=== PATIENT | male | born 1965 | race Hispanic/Latino ===

== ENCOUNTER 2018-02-10 11:32 | Emergency (ER) | payer OTHER ==
[2018-02-10] MEDS ORDERED: TETANUS/DIPHTHERIA TOXOID [ADULT] 0.5 ML VIAL IM ONE (13:14)
[2018-02-10] MEDS ORDERED: IBUPROFEN 800 MG TAB ONE (13:35)
== END 2018-02-10 13:42 | disposition home or self-care (01) ==
LOC: EDH 11:32
DX: S62.665A Nondisplaced fracture of distal phalanx of left ring finger, initial encounter for closed fracture (principal); I10 Essential (primary) hypertension; E11.9 Type 2 diabetes mellitus without complications; W23.0XXA Caught, crushed, jammed, or pinched between moving objects, initial encounter; Y93.89 Activity, other specified; Y92.69 Other specified industrial and construction area as the place of occurrence of the external cause; Y99.8 Other external cause status
CPT/HCPCS: 73140; 90471; 90714

== ENCOUNTER → 2019-04-20 | Outpatient (CLI) | payer OTHER | END | disposition home or self-care (01) | LOC: RAH 13:34 | PROVIDERS: ATTEND Family Medicine | DX: S06.0X0A Concussion without loss of consciousness, initial encounter (principal); X58.XXXA Exposure to other specified factors, initial encounter; Y93.89 Activity, other specified; Y92.89 Other specified places as the place of occurrence of the external cause; Y99.8 Other external cause status | CPT/HCPCS: 70450 ==

== ENCOUNTER → 2020-10-31 | Outpatient (CLI) | payer OTHER | END | disposition home or self-care (01) | LOC: OIH 12:44 | PROVIDERS: ATTEND Internal Medicine Cardiovascular Disease | DX: Z13.6 Encounter for screening for cardiovascular disorders (principal) | CPT/HCPCS: 75571 ==

== ENCOUNTER 2021-10-30 11:53 | Inpatient (IN) | payer BC, OTHER ==
[~2021-10-30] VITALS: Ht 167.6 cm; Wt 127.6 kg
[2021-10-30] MEDS ORDERED: LACTATED RINGERS 1000ML 1,914 ML IV ONE (12:30)
[2021-10-30 12:38] LABS: BASOPHILS % (AUTO) 0.2 % (0.0-5.0); EOSINOPHILS % (AUTO) 0.3 % (0.0-8.0); HEMATOCRIT 34.4 % (42-54); LYMPHOCYTES % (AUTO) 4.9 % (21.0-51.0); MEAN CORPUSCULAR HEMOGLOBIN 29.1 pg (27.0-33.0); MEAN CORPUSCULAR HGB CONC 33.7 g/dL (32.0-36.0); MEAN CORPUSCULAR VOLUME 86.4 fL (79-99); MONOCYTES % (AUTO) 6.2 % (3.0-13.0); PLATELET COUNT (AUTO) 237 K/uL (130-400); RED BLOOD CELL COUNT(AUTO) 3.98 MIL/uL (4.50-6.20); RED CELL DISTRIBUTION WIDTH 12.3 % (11.0-15.5); WHITE BLOOD COUNT (AUTO) 12.8 K/uL (4.8-10.8)
[2021-10-30 12:42] LABS: BASE EXCESS,VENOUS BLOOD GAS -3.5 (-2.0-3.0); HCO3,VENOUS BLOOD GAS 21.8 (21.0-28.0); PCO2,VENOUS BLOOD GAS 40 (35-48)
[2021-10-30 12:51] LABS: INR 1.05 (0.85-1.15); PROTHROMBIN TIME 11.4 SEC (9.6-11.6)
[2021-10-30] MEDS ORDERED: ZOSYN 3.375GM+NS 50ML 50 ML ONE (12:52)
[2021-10-30 12:53] LABS: PARTIAL THROMBOPLASTIN TIME 26.9 SEC (26.3-35.5)
[2021-10-30] MEDS ORDERED: 0.9%NACL 50ML 50 ML IV ONE ×2 (12:53→16:58)
[2021-10-30 12:59] LABS: ALBUMIN 2.5 g/dL (3.5-5.0); CREATININE 3.4 mg/dL (0.5-1.5); POTASSIUM 4.4 mmol/L (3.5-5.1)
[2021-10-30] MEDS ORDERED: VANCOMYCIN PROTOCOL PER PHARMACY IV ONE (13:00)
[2021-10-30 13:02] LABS: BILIRUBIN,TOTAL 0.7 mg/dL (0.2-1.0); TOTAL PROTEIN, SERUM 7.1 g/dL (6.0-8.3)
[2021-10-30 13:13] LABS: B-TYPE NATRIURETIC PEPTIDE < 5 pg/mL (0-100)
[2021-10-30] MEDS ORDERED: COMPOUND IV REFRIGERATED 1 EACH IVSOLN MISC PRN (14:00)
[2021-10-30] MEDS ORDERED: VANCOMYCIN 2GM/500ML NS IV ONE ×2 (14:00)
[2021-10-30] MEDS ORDERED: ONDANSETRON 4MG INJ IVP PRN (14:30)
[2021-10-30] MEDS ORDERED: MORPHINE 2 MG SYG IV PRN (14:30)
[2021-10-30] MEDS ORDERED: VANCOMYCIN PROTOCOL PER PHARMACY IV PRN (14:30)
[2021-10-30] MEDS ORDERED: INSULIN HUMULIN R 100 UNIT/ML 3ML IV ONE (14:30)
[2021-10-30] MEDS ORDERED: ACETAMINOPHEN WITH CODEINE 1 TAB TAB PO PRN (14:30)
[2021-10-30] MEDS ORDERED: ACETAMINOPHEN 325 MG TAB PO PRN (14:30)
[2021-10-30] MEDS ORDERED: HYDR25TA PO (14:47)
[2021-10-30] MEDS ORDERED: AMOX1TAB16 PO (14:48)
[2021-10-30] MEDS ORDERED: FAMO-136 PO (14:49)
[2021-10-30] MEDS ORDERED: GLIM4TAB36 PO (14:50)
[2021-10-30] MEDS ORDERED: AEC81 PO (14:50)
[2021-10-30] MEDS ORDERED: METF-446 PO (14:51)
[2021-10-30] MEDS ORDERED: SULF1TAB42 PO (14:53)
[2021-10-30] MEDS ORDERED: CARV6.25 PO (14:55)
[2021-10-30] MEDS ORDERED: LISI20TA24 PO (14:56)
[2021-10-30] MEDS ORDERED: [UNRECOGNIZED DRUG - OTHER] IV SCH (15:30)
[2021-10-30] MEDS ORDERED: NOREPINEPHRINE IV SCH (15:30)
[2021-10-30] MEDS: 0.9%NACL 1000ML 1,000 ML IV SCH (16:23)
[2021-10-30] MEDS ORDERED: CEFEPIME HCL 2 GM VIAL IVP SCH (17:00)
[2021-10-30 23:15] LABS: APPEARANCE,URINE Cloudy (CLEAR); BILIRUBIN,URINE Negative (NEGATIVE); COLOR,URINE Yellow (YELLOW); GLUCOSE, URINE (UA) 500 mg/dL (NEGATIVE); KETONES,URINE Negative (NEGATIVE); LEUKOCYTE ESTERASE ,URINE Negative (NEGATIVE); NITRATE,URINE Negative (NEGATIVE); OCCULT BLOOD,URINE Negative (NEGATIVE); PROTEIN,URINE POS 1+ mg/dL (NEGATIVE); UROBILINOGEN,URINE 0.2 mg/dL (0.2-1.0)
[2021-10-30 23:29] LABS: RBC,URINE 0-1 /HPF (0-1)
[2021-10-30 23:30] LABS: BACTERIA,URINE Moderate /HPF (None Seen); SQUAMOUS EPITHELIAL CELL,UR Rare /HPF (0-2); WBC,URINE 0-1 /HPF (0-1)
[2021-10-30 23:31] LABS: FINE GRANULAR CASTS,URINE 0-2 /LPF (None Seen)
[2021-10-31] VITALS (21 sets, daily range): BP systolic 110–127; BP diastolic 57–75
[2021-10-31] MEDS: 0.9%NACL 1000ML 1,000 ML IV SCH ×4 (00:30→17:53)
[2021-10-31] MEDS ORDERED: ZOSYN 3.375GM+NS 50ML 50 ML IV SCH (01:00)
[2021-10-31 01:20] LABS: CHLORIDE,URINE RANDOM 85 mmol/L (110-250); POTASSIUM,URINE RANDOM 43 mmol/L (25-125); SODIUM,URINE RANDOM 71 mmol/l (40-220)
[2021-10-31 05:52] LABS: BASOPHILS % (AUTO) 0.3 % (0.0-5.0); EOSINOPHILS % (AUTO) 1.4 % (0.0-8.0); HEMATOCRIT 30.6 % (42-54); LYMPHOCYTES % (AUTO) 5.5 % (21.0-51.0); MEAN CORPUSCULAR HEMOGLOBIN 29.2 pg (27.0-33.0); MEAN CORPUSCULAR HGB CONC 33.7 g/dL (32.0-36.0); MEAN CORPUSCULAR VOLUME 86.7 fL (79-99); MONOCYTES % (AUTO) 8.1 % (3.0-13.0); NEUTROPHILS % (AUTO) 84.4 % (40.0-77.0); PLATELET COUNT (AUTO) 174 K/uL (130-400); RED BLOOD CELL COUNT(AUTO) 3.53 MIL/uL (4.50-6.20); RED CELL DISTRIBUTION WIDTH 12.4 % (11.0-15.5); WHITE BLOOD COUNT (AUTO) 11.8 K/uL (4.8-10.8)
[2021-10-31 06:10] LABS: ALBUMIN 2.2 g/dL (3.5-5.0); BILIRUBIN,TOTAL 0.5 mg/dL (0.2-1.0); CREATININE 2.6 mg/dL (0.5-1.5); MAGNESIUM 2.1 mg/dL (1.80-2.40); PHOSPHORUS 3.4 mg/dL (2.5-4.9); POTASSIUM 4.8 mmol/L (3.5-5.1); TOTAL PROTEIN, SERUM 6.2 g/dL (6.0-8.3)
[2021-10-31] MEDS ORDERED: 0.9% NACL 500ML IV.SOLN 500 ML IV ONE (08:02)
[2021-10-31] MEDS ORDERED: 0.9% NACL 500ML IV.SOLN 500 ML IV SCH (08:30)
[2021-10-31] MEDS ORDERED: ENOXAPARIN SODIUM 30 MG/0.3 ML SQ SCH (09:00)
[2021-10-31] MEDS ORDERED: ZOSYN 3.375GM +NS 50ML IV ONE (09:00)
[2021-10-31] MEDS ORDERED: HEPARIN 5,000 UNIT VIAL SQ SCH (10:00)
[2021-10-31] MEDS: LINEZOLID 600 MG/ISO-OSM 300 ML IV SCH ×2 (11:00→20:01)
[2021-10-31] MEDS ORDERED: LIDOCAINE PF 100MG/5ML (2%) SYRINGE 5ML ONE (13:33)
[2021-10-31] MEDS ORDERED: ONDANSETRON 4MG INJ ONE (13:34)
[2021-10-31] MEDS ORDERED: PROPOFOL 10 MG/ML 20ML VIAL IV ONE (13:34)
[2021-10-31] MEDS ORDERED: ROCURONIUM 10MG/1ML SYR 10 MG/ML ML ONE (13:34)
[2021-10-31] MEDS ORDERED: FENTANYL CITRATE PF 50 MCG/1 ML 2ML VIAL ONE (13:35)
[2021-10-31] MEDS ORDERED: MIDAZOLAM HCL 1 MG/ML 2ML VIAL ONE (13:36)
[2021-10-31] MEDS ORDERED: LIDOCAINE HCL 1% 20 ML VIAL ONE (13:44)
[2021-10-31] MEDS ORDERED: CEFAZOLIN SODIUM 1 GM VIAL ONE (13:44)
[2021-10-31] MEDS ORDERED: BUPIVACAINE/EPI/PF 0.5% 30ML VIAL IJ ONE (13:45)
[2021-10-31] MEDS ORDERED: EPHEDRINE SULFATE 50 MG/ML AMPULE ONE (13:47)
[2021-10-31] MEDS ORDERED: PHENYLEPHRINE HCL 10 MG/ML 1ML VIAL IV ONE (13:54)
[2021-10-31] MEDS ORDERED: VANCOMYCIN 500MG+NS 100ML IVPB IV SCH (14:00)
[2021-10-31] MEDS ORDERED: 0.9%NACL 100ML 100 ML IV SCH (14:00)
[2021-10-31] MEDS: MIDODRINE HCL 5 MG TABLET PO SCH ×2 (14:00→20:01)
[2021-10-31] MEDS ORDERED: HYDROMORPHONE 1 MG INJ IVP PRN (15:30)
[2021-10-31] MEDS ORDERED: OXYCODONE/ACETAMIN 5/325MG TAB PO PRN (15:30)
[2021-10-31] MEDS ORDERED: DEXTROSE 50%-WATER 50 ML DISP.SYRIN IV PRN (19:00)
[2021-10-31] MEDS ORDERED: GLUCAGON 1MG KIT 1 MG ML IM PRN (19:00)
[2021-10-31] MEDS: CEFEPIME HCL 2 GM VIAL IVP SCH (20:01)
[2021-10-31] MEDS: INSULIN HUMULIN R 100 UNIT/ML 3ML SQ SCH (20:08)
[2021-10-31] MEDS: HEPARIN 5,000 UNIT VIAL SQ SCH (21:12)
[2021-11-01] VITALS (7 sets, daily range): BP systolic 99–130; BP diastolic 55–74
[2021-11-01] MEDS: 0.9%NACL 1000ML 1,000 ML IV SCH (05:10)
[2021-11-01] MEDS: HEPARIN 5,000 UNIT VIAL SQ SCH ×3 (05:11→21:30)
[2021-11-01 05:30] LABS: BASOPHILS % (AUTO) 0.3 % (0.0-5.0); EOSINOPHILS % (AUTO) 2.4 % (0.0-8.0); HEMATOCRIT 30.2 % (42-54); LYMPHOCYTES % (AUTO) 11.9 % (21.0-51.0); MEAN CORPUSCULAR HGB CONC 32.1 g/dL (32.0-36.0); MEAN CORPUSCULAR VOLUME 90.1 fL (79-99); MONOCYTES % (AUTO) 7.2 % (3.0-13.0); NEUTROPHILS % (AUTO) 77.8 % (40.0-77.0); PLATELET COUNT (AUTO) 185 K/uL (130-400); RED BLOOD CELL COUNT(AUTO) 3.35 MIL/uL (4.50-6.20); RED CELL DISTRIBUTION WIDTH 12.5 % (11.0-15.5); WHITE BLOOD COUNT (AUTO) 7.8 K/uL (4.8-10.8)
[2021-11-01 05:43] LABS: CREATININE 1.6 mg/dL (0.5-1.5); POTASSIUM 4.2 mmol/L (3.5-5.1)
[2021-11-01] MEDS: INSULIN HUMULIN R 100 UNIT/ML 3ML SQ SCH ×3 (05:44→21:32)
[2021-11-01] MEDS: LINEZOLID 600 MG/ISO-OSM 300 ML IV SCH ×2 (08:23→21:29)
[2021-11-01] MEDS: MIDODRINE HCL 5 MG TABLET PO SCH ×3 (08:23→21:29)
[2021-11-01] MEDS ORDERED: 0.9%NACL 100ML 100 ML IV SCH (09:00)
[2021-11-01] MEDS ORDERED: VANCOMYCIN 500MG+NS 100ML IVPB IV SCH (09:00)
[2021-11-01] MEDS: CEFEPIME HCL 2 GM VIAL IVP SCH (21:29)
[2021-11-01] MEDS: INSULIN GLARGINE 100 UNITS/ML 10 ML VIAL SQ SCH (21:31)
[2021-11-02] MEDS: 0.9%NACL 1000ML 1,000 ML IV SCH ×3 (01:42→21:17)
[2021-11-02 04:00] VITALS: BP 111/65
[2021-11-02 05:11] LABS: BASOPHILS % (AUTO) 0.2 % (0.0-5.0); EOSINOPHILS % (AUTO) 5.1 % (0.0-8.0); LYMPHOCYTES % (AUTO) 19.5 % (21.0-51.0); MEAN CORPUSCULAR HEMOGLOBIN 28.8 pg (27.0-33.0); MEAN CORPUSCULAR VOLUME 90.1 fL (79-99); MONOCYTES % (AUTO) 9.5 % (3.0-13.0); NEUTROPHILS % (AUTO) 65.3 % (40.0-77.0); PLATELET COUNT (AUTO) 216 K/uL (130-400); RED BLOOD CELL COUNT(AUTO) 3.33 MIL/uL (4.50-6.20); RED CELL DISTRIBUTION WIDTH 12.4 % (11.0-15.5); WHITE BLOOD COUNT (AUTO) 5.3 K/uL (4.8-10.8)
[2021-11-02 05:23] LABS: BILIRUBIN,TOTAL 0.3 mg/dL (0.2-1.0); CREATININE 1.6 mg/dL (0.5-1.5); MAGNESIUM 1.9 mg/dL (1.80-2.40); PHOSPHORUS 3.3 mg/dL (2.5-4.9); TOTAL PROTEIN, SERUM 6.3 g/dL (6.0-8.3)
[2021-11-02 05:43] LABS: CRP QUANTITATIVE 254.3 mg/L (0.00-9.0)
[2021-11-02] MEDS: INSULIN HUMULIN R 100 UNIT/ML 3ML SQ SCH ×7 (06:18→21:01)
[2021-11-02 06:23] LABS: ERYTHROCYTE SEDIMENTATION RATE 125 MM/HR (0-20)
[2021-11-02] MEDS: HEPARIN 5,000 UNIT VIAL SQ SCH ×3 (06:28→21:00)
[2021-11-02 07:50] VITALS: BP 116/67
[2021-11-02] MEDS: MIDODRINE HCL 5 MG TABLET PO SCH ×3 (09:16→21:02)
[2021-11-02] MEDS: LINEZOLID 600 MG/ISO-OSM 300 ML IV SCH ×2 (10:10→20:59)
[2021-11-02 11:38] VITALS: BP 122/66
[2021-11-02 15:50] VITALS: BP 125/62
[2021-11-02 20:23] VITALS: BP 119/68
[2021-11-02] MEDS: CEFEPIME HCL 2 GM VIAL IVP SCH (20:59)
[2021-11-02] MEDS: INSULIN GLARGINE 100 UNITS/ML 10 ML VIAL SQ SCH (21:01)
[2021-11-02 23:50] VITALS: BP 128/69
[2021-11-03 04:09] VITALS: BP 119/69
[2021-11-03] MEDS: INSULIN HUMULIN R 100 UNIT/ML 3ML SQ SCH ×7 (05:15→21:40)
[2021-11-03 05:16] LABS: BASOPHILS % (AUTO) 0.4 % (0.0-5.0); EOSINOPHILS % (AUTO) 5.5 % (0.0-8.0); HEMATOCRIT 30.4 % (42-54); LYMPHOCYTES % (AUTO) 24.3 % (21.0-51.0); MEAN CORPUSCULAR HGB CONC 32.6 g/dL (32.0-36.0); MEAN CORPUSCULAR VOLUME 89.1 fL (79-99); MONOCYTES % (AUTO) 9.4 % (3.0-13.0); PLATELET COUNT (AUTO) 258 K/uL (130-400); RED BLOOD CELL COUNT(AUTO) 3.41 MIL/uL (4.50-6.20); RED CELL DISTRIBUTION WIDTH 12.2 % (11.0-15.5); WHITE BLOOD COUNT (AUTO) 4.9 K/uL (4.8-10.8)
[2021-11-03 05:39] LABS: BILIRUBIN,TOTAL 0.2 mg/dL (0.2-1.0); CREATININE 1.4 mg/dL (0.5-1.5); POTASSIUM 3.9 mmol/L (3.5-5.1); TOTAL PROTEIN, SERUM 6.2 g/dL (6.0-8.3)
[2021-11-03] MEDS: HEPARIN 5,000 UNIT VIAL SQ SCH ×2 (06:24→14:06)
[2021-11-03 08:00] VITALS: BP 122/81
[2021-11-03] MEDS: 0.9%NACL 1000ML 1,000 ML IV SCH (08:30)
[2021-11-03] MEDS: MIDODRINE HCL 5 MG TABLET PO SCH ×3 (08:38→21:25)
[2021-11-03] MEDS: LINEZOLID 600 MG/ISO-OSM 300 ML IV SCH ×2 (10:47→21:25)
[2021-11-03 12:00] VITALS: BP 130/71
[2021-11-03 16:00] VITALS: BP 138/67
[2021-11-03] MEDS ORDERED: INSULIN HUMULIN R 100 UNIT/ML 3ML SQ SCH (17:00)
[2021-11-03 19:36] VITALS: BP 122/77
[2021-11-03] MEDS: METFORMIN HCL 500 MG TABLET PO SCH (21:25)
[2021-11-03] MEDS: GLIMEPIRIDE 2 MG TABLET PO SCH (21:25)
[2021-11-03] MEDS: INSULIN GLARGINE 100 UNITS/ML 10 ML VIAL SQ SCH (21:39)
[2021-11-03 23:55] VITALS: BP 148/76
[2021-11-04 04:09] VITALS: BP 121/67
[2021-11-04 04:16] LABS: HEMATOCRIT 30.6 % (42-54); MEAN CORPUSCULAR HEMOGLOBIN 28.6 pg (27.0-33.0); MEAN CORPUSCULAR HGB CONC 32.4 g/dL (32.0-36.0); MEAN CORPUSCULAR VOLUME 88.4 fL (79-99); PLATELET COUNT (AUTO) 308 K/uL (130-400); RED BLOOD CELL COUNT(AUTO) 3.46 MIL/uL (4.50-6.20); RED CELL DISTRIBUTION WIDTH 12.1 % (11.0-15.5); WHITE BLOOD COUNT (AUTO) 5.5 K/uL (4.8-10.8)
[2021-11-04 04:34] LABS: CREATININE 1.5 mg/dL (0.5-1.5); POTASSIUM 3.5 mmol/L (3.5-5.1)
[2021-11-04 05:20] LABS: EOSINOPHILS % (MANUAL) 3 % (1-6); LYMPHOCYTES % (MANUAL) 29 % (22-44); MAN.DIFF COMMENT-IMPRESSION MANUAL DIFFERENTIAL; MONOCYTES % (MANUAL) 3 % (2-9); PLATELET MORPHOLOGY COMMENT ADEQUATE; SEGMENTED NEUTROPHILS % 65 % (40-70)
[2021-11-04] MEDS: INSULIN HUMULIN R 100 UNIT/ML 3ML SQ SCH ×6 (07:30→17:10)
[2021-11-04 08:17] VITALS: BP 133/75
[2021-11-04] MEDS: GLIMEPIRIDE 2 MG TABLET PO SCH (08:43)
[2021-11-04] MEDS: MIDODRINE HCL 5 MG TABLET PO SCH ×3 (08:44→14:40)
[2021-11-04] MEDS: METFORMIN HCL 500 MG TABLET PO SCH (08:44)
[2021-11-04] MEDS ORDERED: ASPIRIN 81 MG EC TAB PO SCH (09:00)
[2021-11-04] MEDS ORDERED: ENOXAPARIN SODIUM 40 MG/0.4 ML SYRINGE SQ SCH (09:00)
[2021-11-04] MEDS: LINEZOLID 600 MG/ISO-OSM 300 ML IV SCH (11:25)
[2021-11-04 11:51] VITALS: BP 138/74
[2021-11-04] MEDS ORDERED: LINE600T14 PO (12:19)
[2021-11-04] MEDS ORDERED: METR-172 PO (12:19)
[2021-11-04] MEDS ORDERED: IBUP-2077 PO (12:19)
[2021-11-04] MEDS ORDERED: NEED1DIS MC (12:28)
[2021-11-04] MEDS ORDERED: INSU3INS3 SQ (12:28)
[2021-11-04] MEDS ORDERED: METRONIDAZOLE 500 MG TABLET PO SCH (14:30)
[2021-11-04 16:00] VITALS: BP 138/78
== END 2021-11-04 18:22 | disposition home health service (06) | DRG 871 ==
LOC: EDH 11:53 → EDHIP 13:30 → 4DH 10-31 16:35
PROVIDERS: ADMIT Hospitalist; ATTEND Hospitalist
PROC: 0J9C0ZZ Drainage of Pelvic Region Subcutaneous Tissue and Fascia, Open Approach (ICD-10-PCS; principal; 2021-10-31 13:43)
DX: A41.9 Sepsis, unspecified organism (principal); N17.0 Acute kidney failure with tubular necrosis; R65.21 Severe sepsis with septic shock; L02.214 Cutaneous abscess of groin; L03.314 Cellulitis of groin; L02.415 Cutaneous abscess of right lower limb; E87.1 Hypo-osmolality and hyponatremia; Z68.42 Body mass index [BMI] 45.0-49.9, adult; N13.30 Unspecified hydronephrosis; N18.9 Chronic kidney disease, unspecified; E66.01 Morbid (severe) obesity due to excess calories; I12.9 Hypertensive chronic kidney disease with stage 1 through stage 4 chronic kidney disease, or unspecified chronic kidney disease; D64.9 Anemia, unspecified; E86.1 Hypovolemia; E11.22 Type 2 diabetes mellitus with diabetic chronic kidney disease; E11.65 Type 2 diabetes mellitus with hyperglycemia; Z20.822 Contact with and (suspected) exposure to COVID-19; Z83.3 Family history of diabetes mellitus; Z82.49 Family history of ischemic heart disease and other diseases of the circulatory system
CPT/HCPCS: 36415; 36600; 71045; 76770; 76882; 80048; 80053; 81001; 82009; 82435; 82436; 82550; 82803; 82947; 82948; 83036; 83605; 83735; 83880; 83935; 84100; 84132; 84133; 84145; 84295; 84300; 84484; 85025; 85610; 85651; 85730; 86140; 87040; 87070; 87076; 87088; 87205; 87635; 87804; 87880; 93005; 93356; 96374; A6266; C8929; G0378; J0690; J0692; J1170; J1644; J1650; J1815; J2001; J2020; J2250; J2370; J2405; J2543; J2704; J3010; J3370; J3490; J7030; J7040

== ENCOUNTER → 2021-11-18 | Outpatient (CLI) | payer BC ==
[~2021-11-18] MED LIST: AEC81 PO; CARV6.25 PO; FAMO-136 PO; GLIM4TAB36 PO; HYDR25TA PO; IBUP-2077 PO; INSU3INS3 SQ; LIDOCAINE HCL 4% LTA SOL 4 ML VIAL TP ONE; LINE600T14 PO; LISI20TA24 PO; METF-446 PO; METR-172 PO; NEED1DIS MC
== END | disposition home or self-care (01) ==
LOC: WHH 08:56
PROVIDERS: ATTEND Family Medicine
DX: T81.89XD Other complications of procedures, not elsewhere classified, subsequent encounter (principal); S71.101D Unspecified open wound, right thigh, subsequent encounter; E11.628 Type 2 diabetes mellitus with other skin complications; E11.22 Type 2 diabetes mellitus with diabetic chronic kidney disease; I12.9 Hypertensive chronic kidney disease with stage 1 through stage 4 chronic kidney disease, or unspecified chronic kidney disease; N18.9 Chronic kidney disease, unspecified; E66.01 Morbid (severe) obesity due to excess calories; E78.5 Hyperlipidemia, unspecified; Z68.42 Body mass index [BMI] 45.0-49.9, adult; Z90.49 Acquired absence of other specified parts of digestive tract; Y83.8 Other surgical procedures as the cause of abnormal reaction of the patient, or of later complication, without mention of misadventure at the time of the procedure; X58.XXXD Exposure to other specified factors, subsequent encounter
CPT/HCPCS: 99214

== ENCOUNTER → 2021-11-25 | Outpatient (CLI) | payer BC ==
[~2021-11-25] MED LIST changes: -LIDOCAINE HCL 4% LTA SOL 4 ML VIAL TP ONE
== END | disposition home or self-care (01) ==
LOC: WHH 09:04
PROVIDERS: ATTEND Family Medicine
DX: T81.89XD Other complications of procedures, not elsewhere classified, subsequent encounter (principal); S71.101D Unspecified open wound, right thigh, subsequent encounter; E11.628 Type 2 diabetes mellitus with other skin complications; E11.22 Type 2 diabetes mellitus with diabetic chronic kidney disease; I12.9 Hypertensive chronic kidney disease with stage 1 through stage 4 chronic kidney disease, or unspecified chronic kidney disease; N18.9 Chronic kidney disease, unspecified; E66.01 Morbid (severe) obesity due to excess calories; E78.5 Hyperlipidemia, unspecified; Z68.42 Body mass index [BMI] 45.0-49.9, adult; Z90.49 Acquired absence of other specified parts of digestive tract; X58.XXXD Exposure to other specified factors, subsequent encounter; Y83.8 Other surgical procedures as the cause of abnormal reaction of the patient, or of later complication, without mention of misadventure at the time of the procedure
CPT/HCPCS: 99214

== ENCOUNTER 2022-03-31 10:23 | Emergency (ER) | payer BC ==
[~2022-03-31] VITALS: Ht 167.6 cm; Wt 137.4 kg
[2022-03-31 10:50] LABS: BASOPHILS % (AUTO) 0.3 % (0.0-5.0); EOSINOPHILS % (AUTO) 2.7 % (0.0-8.0); HEMATOCRIT 38.4 % (42-54); LYMPHOCYTES % (AUTO) 13.6 % (21.0-51.0); MEAN CORPUSCULAR HEMOGLOBIN 28.1 pg (27.0-33.0); MEAN CORPUSCULAR HGB CONC 32.8 g/dL (32.0-36.0); MEAN CORPUSCULAR VOLUME 85.7 fL (79-99); MONOCYTES % (AUTO) 6.1 % (3.0-13.0); PLATELET COUNT (AUTO) 248 K/uL (130-400); RED BLOOD CELL COUNT(AUTO) 4.48 MIL/uL (4.50-6.20); RED CELL DISTRIBUTION WIDTH 12.6 % (11.0-15.5); WHITE BLOOD COUNT (AUTO) 9.7 K/uL (4.8-10.8)
[2022-03-31 10:52] LABS: APPEARANCE,URINE Clear (CLEAR); BILIRUBIN,URINE Negative (NEGATIVE); COLOR,URINE Yellow (YELLOW); GLUCOSE, URINE (UA) 500 mg/dL (NEGATIVE); KETONES,URINE Trace mg/dL (NEGATIVE); LEUKOCYTE ESTERASE ,URINE Negative (NEGATIVE); NITRATE,URINE Negative (NEGATIVE); OCCULT BLOOD,URINE Negative (NEGATIVE); PH,URINE 5.5 (5.0-8.0); PROTEIN,URINE Trace mg/dL (NEGATIVE); UROBILINOGEN,URINE 0.2 mg/dL (0.2-1.0)
[2022-03-31 10:58] LABS: BACTERIA,URINE Rare /HPF (None Seen); RBC,URINE 0-1 /HPF (0-1); SQUAMOUS EPITHELIAL CELL,UR Rare /HPF (0-2); WBC,URINE 0-1 /HPF (0-1)
[2022-03-31 11:05] LABS: ALBUMIN 3.1 g/dL (3.5-5.0); BILIRUBIN,TOTAL 0.4 mg/dL (0.2-1.0); CREATININE 1.3 mg/dL (0.5-1.5); POTASSIUM 4.3 mmol/L (3.5-5.1)
[2022-03-31] MEDS ORDERED: ASPIRIN 325MG TAB PO ONE (14:00)
[2022-03-31] MEDS ORDERED: MAG/ALUM/SIMETH 30 ML UDCUP PO ONE (14:00)
[2022-03-31] MEDS ORDERED: NITROGLYCERIN 1GM OINT 1 INCH/1GM TD ONE (14:00)
[2022-03-31] MEDS ORDERED: FAMOTIDINE 20MG VIAL IV ONE (14:00)
[2022-03-31] MEDS ORDERED: FAMO-136 PO (15:37)
[2022-03-31 15:53] VITALS: BP 116/63
== END 2022-03-31 16:04 | disposition home or self-care (01) ==
LOC: EDH 10:23
DX: R07.89 Other chest pain (principal); E11.9 Type 2 diabetes mellitus without complications; E78.00 Pure hypercholesterolemia, unspecified; I10 Essential (primary) hypertension; Z79.899 Other long term (current) drug therapy; Z79.84 Long term (current) use of oral hypoglycemic drugs; Z79.82 Long term (current) use of aspirin; Z90.89 Acquired absence of other organs; Z98.890 Other specified postprocedural states
CPT/HCPCS: 36415; 71045; 80053; 81001; 83880; 84484 ×2; 85025; 93005 ×2; 96374; 99284; J3490

== ENCOUNTER 2022-11-08 15:19 | Emergency (ER) | payer BC ==
[~2022-11-08] VITALS: Ht 167.6 cm; Wt 136.1 kg
[2022-11-08 17:04] LABS: BASOPHILS % (AUTO) 0.2 % (0.0-5.0); EOSINOPHILS % (AUTO) 1.2 % (0.0-8.0); HEMATOCRIT 39.7 % (42-54); LYMPHOCYTES % (AUTO) 15.6 % (21.0-51.0); MEAN CORPUSCULAR HEMOGLOBIN 29.1 pg (27.0-33.0); MEAN CORPUSCULAR HGB CONC 34.5 g/dL (32.0-36.0); MEAN CORPUSCULAR VOLUME 84.5 fL (79-99); MONOCYTES % (AUTO) 7.7 % (3.0-13.0); NEUTROPHILS % (AUTO) 74.8 % (40.0-77.0); PLATELET COUNT (AUTO) 186 K/uL (130-400); RED CELL DISTRIBUTION WIDTH 12.1 % (11.0-15.5); WHITE BLOOD COUNT (AUTO) 5.7 K/uL (4.8-10.8)
[2022-11-08] MEDS ORDERED: L.E.T. GEL 3ML SYG TP ONE (17:05)
[2022-11-08 17:18] LABS: ALBUMIN 2.5 g/dL (3.5-5.0); CREATININE 1.6 mg/dL (0.5-1.5); POTASSIUM 4.3 mmol/L (3.5-5.1); TOTAL PROTEIN, SERUM 6.8 g/dL (6.0-8.3)
[2022-11-08] MEDS ORDERED: SULFAMETHOX-TMP DS 800/160 TAB PO SCH (17:30)
[2022-11-08] MEDS ORDERED: SULF1TAB42 PO (17:44)
[2022-11-08 17:53] VITALS: BP 110/62
[2022-11-08] MEDS ORDERED: INSULIN HUMULIN R 100 UNIT/ML 3ML SQ ONE (18:00)
[2022-11-08] MEDS ORDERED: HYDROCODONE/ACETAMINOPHEN 5/325 MG TAB PO ONE (18:00)
== END 2022-11-08 18:05 | disposition home or self-care (01) ==
LOC: EDH 15:19
DX: L02.211 Cutaneous abscess of abdominal wall (principal); E11.649 Type 2 diabetes mellitus with hypoglycemia without coma; I13.10 Hypertensive heart and chronic kidney disease without heart failure, with stage 1 through stage 4 chronic kidney disease, or unspecified chronic kidney disease; E11.22 Type 2 diabetes mellitus with diabetic chronic kidney disease; N18.9 Chronic kidney disease, unspecified; Z90.49 Acquired absence of other specified parts of digestive tract; Z90.89 Acquired absence of other organs; Z79.899 Other long term (current) drug therapy; Z79.82 Long term (current) use of aspirin; Z79.4 Long term (current) use of insulin
CPT/HCPCS: 99284; 80053; 85025; 87070; 87076; 36415; 96372; J1815; 90471

== ENCOUNTER 2023-07-20 15:06 | Emergency (ER) | payer BC ==
[~2023-07-20] VITALS: Ht 167.6 cm; Wt 136.1 kg
[~2023-07-20 15:06] MED LIST changes: +SULF1TAB42 PO
[2023-07-20 16:16] VITALS: BP 100/60; PULSE 63; RESP 16; O2SAT 96
[2023-07-20] MEDS ORDERED: TETANUS/DIPHTHERIA TOXOID [ADULT] 0.5 ML VIAL IM ONE (16:30)
[2023-07-20] MEDS ORDERED: SULF1TAB42 PO (16:31)
== END 2023-07-20 17:05 | disposition home or self-care (01) ==
LOC: EDH 15:06
DX: L02.31 Cutaneous abscess of buttock (principal); E11.9 Type 2 diabetes mellitus without complications; E78.00 Pure hypercholesterolemia, unspecified; Z90.49 Acquired absence of other specified parts of digestive tract; Z79.82 Long term (current) use of aspirin; Z79.84 Long term (current) use of oral hypoglycemic drugs; Z79.899 Other long term (current) drug therapy; Z98.890 Other specified postprocedural states
CPT/HCPCS: 10060; 82948; 90471; 90714